=== PATIENT | female | born 1990 | race Caucasian/White ===

== ENCOUNTER → 2019-09-15 15:53 | Outpatient (CLI) | payer BC, SELFPAY ==
--- NOTE | ~2019-09-15 | US_ITS ---
EXAMINATION: US OB >= 14 weeks Fetus DATE: 09/15/2019 16:40 INDICATION: Second trimester anatomic survey TECHNIQUE: Real-time ultrasound of the pelvis was performed. COMPARISON: None. FINDINGS: There is a single living fetus in variable presentation. The placenta is anterior and 4.2 cm from the internal cervical os. heart rate is 138 beats per minute (bpm). cardiac activity and fe garcia movement are noted. The amniotic fluid index is subjectively normal. The stomach is not well demonstrated. The following anatomy was identified as normal: 4 chamber heart 3 vessel cord cord insertion kidneys urinary bladder spine diaphragm ventricles cisterna magna cerebellum The following biometric data were obtained: Biparietal diameter (BPD): 4.0 cm; head circumference (HC): 14.8 cm; abdominal circumference (AC): 13 .1 cm; femur length (FL): 2.4 cm. These measurements are concordant. Estimated weight is 219 g +/- 32 g, which correlates with the 44th percentile when 02/16/2020 is used as estimated date of delivery. As single measurements, these parameters are each equal to the following estimated gestational ages w ith ranges of +/- 2 standard deviations: BPD: 18 weeks 1 days ( 16 weeks 3 days - 19 weeks 6 days). HC: 18 weeks 0 days ( 16 weeks 5 days - 19 weeks 1 days). AC: 18 weeks 5 days ( 16 weeks 4 days - 20 weeks 5 days). FL: 17 weeks 2 days ( 15 weeks 6 days - 18 weeks 5 days). estimated gestational age based solely on measurements from this exam is 18 weeks 0 days +/- 1 weeks 2 days. IMPRESSION: 1. Single living fetus in variable presentation. 2. Estimated weight is 219 g +/- 32 g, which correlates with the 44th percentile when 02/16/2020 is used as estimated date of delivery. Reviewed, dictated and finalized at location A. IMPRESSION: 1. Single living fetus in variable presentation. 2. Estimated weight is 219 g +/- 32 g, which correlates with the 44th per centile when 02/16/2020 is used as estimated date of delivery.
== END ==
PROVIDERS: Visit Provider Obstetrics & Gynecology
DX: Z34.92 Encounter for supervision of normal pregnancy, unspecified, second trimester (principal); Z3A.18 18 weeks gestation of pregnancy
CPT/HCPCS: 76805

== ENCOUNTER 2019-09-17 09:20 | Emergency (ER) | payer BC, SELFPAY ==
--- NOTE | 2019-09-17 09:31 | ED.FALL ---
HPI - Fall General Chief Complaint: Fall Stated Complaint: 18 weeks preg/fall Time Seen by Provider: 09/17/19 09:29 Source: patient Mode of arrival: ambulatory Limitations: no limitations History of Present Illness HPI Narrative: A 28 y/o female presents to the ED with c/o fall. Pt states that she fell down her stairs at home today. She is currently 18 weeks and wanted to be evaluated to make sure that the baby is okay. Pt reports right hand abrasion, but denies right hand pain, vaginal bleeding, LOC, vaginal discharge, ABD pain, and back pain. Dr. Johnson is her [facility]. She is 2. complaint: fall Onset (ago): hour(s) (today) Fall from: down stairs (#) Place fall occurred: home Loss of consciousness: none Location of injury - extremities: Right: hand Associated symptoms (after fall): other (right hand abrasion) Related Data Allergies Allergy/AdvReac Type Severity Reaction Status Date / Time doxycycline AdvReac Unknown vomit Verified 06/12/15 21:21 tanfed Allergy Unknown paranoia Uncoded 06/12/15 21:21 Review of Systems Review of Systems: All systems reviewed & are unremarkable except as noted in HPI and below Gastrointestinal: Gastrointestinal: Denies abdominal pain Genitourinary: Genitourinary: Denies abnormal vaginal bleeding and Denies vaginal discharge Musculoskeletal: Musculoskeletal: Denies back pain and Denies arthralgias (right hand) Integumentary/Breasts: Skin/Breast: Reports wounds (right hand abrasion) Neurologic: Denies other (LOC) PMFSH Past Medical History Medical History (Updated 09/17/19 @ 11:16 by Belem Conner MD) 2 Surgical History Surgical History (Updated 09/17/19 @ 09:32 by Tanya Rodriguez) History of appendectomy Social History Social History (Updated 09/17/19 @ 09:32 by Tanya Rodriguez) Smoking status: Never smoker Exam Const: General: cooperative, no acute distress and alert Nutritional Appearance: well nourished Orientation/consciousness: patient oriented x3 Limitations: no limitations HENMT: Mouth: Yes lip normal and Yes moist mucous membranes Resp: Effort & Inspection: normal respiratory effort Auscultation: clear to auscultation bilaterally Cardio: Rate: regular rate Rhythm: regular rhythm GI: GI Palp: Yes Soft to palpation and No Tenderness to palpation present (GI) Auscultation: normal bowel sounds : OB/external & speculum: other ( heart rate dopplered at 150s) Skin: General skin exam: normal color Neuro: General: patient oriented x3 Cognition (Neuro): normal cognition Speech: normal speech Extrem: General: normal to inspection, full ROM and no clubbing, cyanosis or edema Psych: Mental Status: mental status grossly normal Affect: normal affect Attitude: cooperative Course Course Emergency Course: Patient with Rh+ blood type. No abdominal pain or vaginal bleeding. Exam benign. Will discharge home. Advised [facility] follow-up. Consultations Consultation #1: Discussed case with [facility], Dr. May. They adivse to type and screen the patient, and if they are Rh-, give the patient RhoGAM. Date: 09/17/19 Time: 09:38 Vital Signs Vital signs: Vital Signs Temperature 98.0 F 09/17/19 09:37 Pulse Rate 96 09/17/19 09:37 Respiratory Rate 12 09/17/19 09:37 Blood Pressure 114/70 09/17/19 09:37 Pulse Oximetry 98 09/17/19 09:37 Temperature 98.0 F 09/17/19 09:37 Pulse Rate 96 09/17/19 09:37 Respiratory Rate 12 09/17/19 09:37 Blood Pressure 114/70 09/17/19 09:37 Pulse Oximetry 98 09/17/19 09:37 MDM - Fall Lab Data Labs: Lab Results 09/17/19 Range/Units 09:48 Blood Type O Positive Doses of RhIg Required 0 Critical Care Time Critical Care Time Critical Care Time: No Discharge Plan Discharge Clinical Impression: Second trimester Accident due to mechanical fall without injury Qualifiers: Encounter type: initial encounter Qualified Code(s): W19.X
[2019-09-17 09:37] VITALS: BP 114/70; PULSE 96; RESP 12; TEMP 36.7; O2SAT 98
== END 2019-09-17 11:23 | disposition home or self-care (01) ==
PROVIDERS: Emergency Provider Emergency Medicine; PCP Obstetrics & Gynecology
DX: O9A.212 Injury, poisoning and certain other consequences of external causes complicating pregnancy, second trimester (principal); S60.511A Abrasion of right hand, initial encounter; Z3A.18 18 weeks gestation of pregnancy; W10.9XXA Fall (on) (from) unspecified stairs and steps, initial encounter
CPT/HCPCS: 36415; 86900; 86901; 99283

== ENCOUNTER → 2019-09-29 08:46 | Outpatient (CLI) | payer BC, SELFPAY ==
--- NOTE | ~2019-09-29 | US_ITS ---
EXAMINATION: US OB limited DATE: 09/29/2019 09:06 INDICATION: Nonvisualized anatomy on prior anatomic survey. TECHNIQUE: Real-time ultrasound of the pelvis was performed. The interpreting radiologist was not pre sent for the study. COMPARISON: 09/15/2019 FINDINGS: There is a single living fetus in breech presentation. The placenta is anterior with caudal margin 4 .3 cm from the internal cervical os. heart rate is 144 beats per minute (bpm). The amniotic flu id volume is subjectively normal. Normal stomach is visualized. IMPRESSION: 1. Single living fetus in breech presentation with heart rate of 144 bpm. 2. Normal stomach is visualized. Reviewed, dictated and finalized at location B. IMPRESSION: 1. Single living fetus in breech presentation with heart rate of 144 bpm . 2. Normal stomach is visualized.
== END ==
PROVIDERS: PCP Internal Medicine; Visit Provider Obstetrics & Gynecology
DX: Z36.2 Encounter for other antenatal screening follow-up (principal)
CPT/HCPCS: 76815

== ENCOUNTER 2020-02-02 08:22 | Outpatient (RCR) | payer BC, SELFPAY ==
--- NOTE | ~2020-02-02 | US_ITS ---
EXAMINATION: US OB follow up DATE: 02/02/2020 12:46 INDICATION: growth assessment, third trimester TECHNIQUE: Real-time ultrasound of the pelvis was performed. The interpreting radiologist was not pre sent for the study. COMPARISON: None. FINDINGS: There is a single living fetus in vertex presentation. The placenta is anterior. card iac activity and movement are noted. heart rate is 130 beats per minute (bpm). The amniot ic fluid index is normal. The following biometric data were obtained: Biparietal diameter (BPD): 9.1 cm; head circumference (HC): 32.6 cm; abdominal circumference (AC): 30 .4 cm; femur length (FL): 7.0 cm. These measurements are concordant. Estimated weight is 2658 g +/- 398 g, which correlates with the 8th percentile when 02/16/2020 i s used as estimated date of delivery. As single measurements, these parameters are each equal to the following estimated gestational ages w ith ranges of +/- 2 standard deviations: BPD: 37 weeks 0 days +/- 3 weeks 1 days. HC: 37 weeks 0 days +/- 2 weeks 5 days. AC: 34 weeks 3 days +/- 3 weeks 0 days. FL: 36 weeks 0 days +/- 3 weeks 0 days. estimated gestational age based solely on measurements from this exam is 36 weeks 1 days +/- 2 weeks 4 days. IMPRESSION: 1. Single living fetus in vertex presentation. 2. Estimated weight is 2658 g +/- 398 g, which correlates with the 8th percentile when 0 is used as estimated date of delivery. Reviewed, dictated and finalized at location B. IMPRESSION: 1. Single living fetus in vertex presentation. 2. Estimated weight is 2658 g +/- 398 g, which correlates with the 8th pe rcentile when 02/16/2020 is used as estimated date of delivery.
--- NOTE | ~2020-02-02 | US_ITS ---
EXAMINATION: US OB limited w BPP DATE: 02/02/2020 09:12 INDICATION: Small for gestational age, third trimester TECHNIQUE: Real-time pelvic ultrasound was performed. The interpreting radiologist was not present fo r the study. COMPARISON: None. FINDINGS: There is a single living fetus in vertex presentation. The placenta is anterior. heart rate is 152 beats per minute (bpm). The amniotic fluid index is 10.9 cm which is normal Biophysical profile performed by the technologist: breathing (30 sec sustained breathing in 30 minutes): 2 out of 2 movement (3 gross body movements in 30 minutes): 2 out of 2 tone (one episode of aigpual-lndmiuuif-tujtqvi limb movement): 2 out of 2 Amniotic fluid pocket (2 cm): 2 out of 2 Total score: 8 out of 8 IMPRESSION: 1. Single living fetus in vertex presentation. 2. Biophysical profile 8 out of 8. 3. Normal amniotic fluid index. Reviewed, dictated and finalized at location B.
--- NOTE | 2020-02-02 13:10 | PC.NURSE ---
Dr. Johnson informed of growth U/S report. OK to discharge pt to home. Faxed report to MD office.
== END 2020-02-15 07:42 | disposition home or self-care (01) ==
LOC: ANHOBOP 08:22
PROVIDERS: PCP Internal Medicine; Visit Provider Obstetrics & Gynecology
DX: O36.5930 Maternal care for other known or suspected poor fetal growth, third trimester, not applicable or unspecified (principal); Z3A.38 38 weeks gestation of pregnancy
CPT/HCPCS: 59025; 76815; 76816; 76819

== ENCOUNTER 2020-02-14 04:56 | Inpatient (IN) | payer BC, SELFPAY ==
[2020-02-14] VITALS (153 sets, daily range): BP systolic 81–139; BP diastolic 35–94; PULSE 56–128; RESP 16; TEMP 36.6–37.1; O2SAT 95–100; BMI 36.7
--- NOTE | 2020-02-14 05:23 | LDADM ---
This patient, Vera Chang, was admitted to Labor/Delivery/Recovery 106 on 02/14/20 at 04:56. Plans for labor, pain management and were discussed with patient. Patient/family oriented to hospital policies and general routines including ID bracelet, bed and alarms, visiting hours, pain management, procedures, bathroom and other care routines, personal items, smoking policy, room service/diet and guest tray routines, security routines, and visiting hours. Patient/Family are encouraged to report perceived risks to care and to ask questions if they do not understand what they are told or what they should do. See OBIX for further documentation.
[2020-02-14 05:49] LABS: Basophils Percent Auto 0.4 % (0.2-1.2); Eosinophils Absolute Auto 0.1 K/mm3 (0-0.3); Eosinophils Percent Auto 0.7 % (0-4.4); Hematocrit 39.8 % (37.0-47.0); Hemoglobin 13.7 g/dL (12.0-15.0); Immature Granulocyte Absolute 0.06 K/mm3 (0.00-0.031); Immature Granulocyte Percent A 0.6 % (0-0.5); Lymphocytes Absolute Auto 2.55 K/mm3 (0.9-3.2); Mean Corpuscular HGB Conc 34.4 g/dl (32-36); Mean Corpuscular Hemoglobin 29.8 pg (26-34); Mean Corpuscular Volume 86.5 fl (80-100); Mean Platelet Volume 10.7 fl (7.4-10.4); Monocytes Absolute Auto 0.7 K/mm3 (0.1-0.6); Monocytes Percent Auto 7.1 % (2.6-8.5); Neutrophils Absolute Auto 6.4 K/mm3 (1.3-6.7); Neutrophils Percent Auto 65.2 % (45.5-73.1); Platelet Count Result 220 k/mm3 (150-375); Red Cell Distribution Width 13.2 % (11.5-14.5); White Blood Count 9.8 K/mm3 (4.5-10.0)
[2020-02-14] MEDS: LACTATED RINGERS 1,000 ML 125 ML IV CONT ×3 (05:52→13:17)
[2020-02-14] MEDS: OXYTOCIN 30 UNITS/NS 500 ML 30 UNITS/500 ML BAG IV CONT (06:38)
[2020-02-14 07:39] LABS: Rapid Plasma Reagin Non-Reactive (NonReactive)
--- NOTE | 2020-02-14 07:45 | P.PNAN_ITS ---
Anes - Eval Pre Procedure Procedure: labor epidural Date/Time: 02/14/20 07:45 Preop Diagnosis: pain during labor Pre Op Diagnosis: Induction Patient Data Age: 29 Gender: F Height: 5 ft 3 in Weight: 94 kg Last Vital Signs Temp 36.6 C 02/14/20 07:30 Pulse 67 02/14/20 07:30 BP 107/73 02/14/20 07:30 Allergies Allergy/AdvReac Type Severity Reaction Status Date / Time doxycycline AdvReac Unknown vomit Verified 01/16/20 13:31 tanfed Allergy Unknown paranoia Uncoded 06/12/15 21:21 Home Medications Medication Instructions Recorded Confirmed Type PNV cmb#95-ferrous fumarate-FA 1 tablet PO DAILY 01/16/20 01/16/20 History [] ergocalciferol (vitamin D2) 1,250 mcg PO WEEKLY 01/16/20 01/16/20 History [Vitamin D2] Laboratory Tests 02/14/20 02/14/20 02/14/20 05:39 05:39 05:39 WBC 9.8 K/mm3 K/mm3 (4.5-10.0) RBC 4.60 M/mm3 M/mm3 (4.2-5.4) Hgb 13.7 g/dL g/dL (12.0-15.0) Hct 39.8 % % (37.0-47.0) MCV 86.5 fl fl (80-100) MCH 29.8 pg pg (26-34) MCHC 34.4 g/dl g/dl (32-36) RDW 13.2 % % (11.5-14.5) Plt Count 220 k/mm3 k/mm3 (150-375) MPV 10.7 fl H fl (7.4-10.4) Immature Gran % (Auto) 0.6 % H % (0-0.5) Neut % (Auto) 65.2 % % (45.5-73.1) Lymph % (Auto) 26.0 % % (18.3-44.2) [place] % (Auto) 7.1 % % (2.6-8.5) Eos % (Auto) 0.7 % % (0-4.4) Baso % (Auto) 0.4 % % (0.2-1.2) Lymph # (Auto) 2.55 K/mm3 K/mm3 (0.9-3.2) [place] # (Auto) 0.7 K/mm3 H K/mm3 (0.1-0.6) Eos # (Auto) 0.1 K/mm3 K/mm3 (0-0.3) Baso # (Auto) 0.0 K/mm3 K/mm3 (0.0-0.1) Abs Immat Gran (auto) 0.06 K/mm3 H K/mm3 (0.00-0.031) Absolute Neuts (auto) 6.4 K/mm3 K/mm3 (1.3-6.7) Absolute Nucleated RBC 0.0 K/mm3 K/mm3 (0.0-0.012) Nucleated RBC % 0.0 % % (0.0-0.2) RPR Non-reactive (NonReactive) Blood Type O Positive Antibody Screen Negative Patient hx anesthesia problems: none Family hx anesthesia problems: none PMFSH Past Medical History Medical History (Updated 09/18/19 @ 00:00 by Brie Casas) 2 Surgical History Surgical History (Updated 09/17/19 @ 09:32 by Tanya Rodriguez) History of appendectomy Family History Family History (Updated 01/16/20 @ 13:34 by Gali Sky RN) Father FH: CABG (coronary artery bypass surgery) Mother Pre-diabetes Social History Social History (Updated 09/17/19 @ 09:32 by Tanya Rodriguez) Smoking status: Never smoker Second hand tobacco smoke exposure: No Substance use: never Spiritual care concerns: No Exam Day of Procedure 02/14/20 07:45
--- NOTE | 2020-02-14 09:36 | WPDOBADMIT ---
Obstetrics - Admit Note Admission Note: Strip reviewed. AROm clear fluid IUPC and FSE placed for monitoring. AMnioinfusion began. cervix /. record reviewed. No pertinent additions to the history and/or any subsequent changes in the physical findings that are not consistent with the expected course of the were found. Additions to the history and/or subsequent changes in the physical findings follow. None.
--- NOTE | 2020-02-14 16:41 | P.PCNOB_ITS ---
OB - Delivery Note Procedure Delivery date: 02/14/20 Procedure: VAVD events: Labor Induction Intrapartal events: None and Deceleration Induction method: AROM and per pitocin protocol Delivery monitor: external FHT, external uterine, internal FHT and internal uterine Route of delivery: vacuum extraction Indication for instrumentation: nonreassuring FHR tracing Laceration description: Periurethral - 2nd Degree Delivery repair: vicryl Specimen: Yes Estimated blood loss (mL): 180 Anesthesia type: Epidural Disposition: floor [place] Baby Date of : 02/14/20 Time of : 16:24 Weeks of gestation at delivery: 39 gender: Male Weight (pounds): 6 Weight (ounces): 14 presentation: vertex position: Left Occiput Anterior Placenta delivery description: Spontaneous cord vessel description: 3 Vessels, Nuchal Cord and Clamped/Cut score one minute: 8 score five minutes: 9
--- NOTE | 2020-02-14 16:44 | PM.OBDSVD ---
DS: Admitting Diagnosis Admitting Diagnosis Admitting Diagnosis: Induction DS: Discharge Diagnosis Discharge Diagnosis (1) Vacuum extraction, delivered, current hospitalization: Code(s): O66.5 - Attempted application of vacuum extractor and forceps Status: Acute OB - DS: Summary OB Procedures : NST and Ultrasound OB Procedures Intrapartum: Vacuum extraction OB Procedures: : None Peripartum Data Infant Delivery Method: Natural Vaginal Laceration description: Periurethral - 2nd Degree complications: none Time Spent with Patient Time attestation: Total time spent providing and/or coordinating discharge services: DS: Data Data Completed and Pending Labs on day of discharge: Labs from last 24 hours 02/14/20 02/14/20 02/14/20 05:39 05:39 05:39 WBC 9.8 RBC 4.60 Hgb 13.7 Hct 39.8 MCV 86.5 MCH 29.8 MCHC 34.4 RDW 13.2 Plt Count 220 MPV 10.7 H Immature Gran % (Auto) 0.6 H Neut % (Auto) 65.2 Lymph % (Auto) 26.0 [place] % (Auto) 7.1 Eos % (Auto) 0.7 Baso % (Auto) 0.4 Lymph # (Auto) 2.55 [place] # (Auto) 0.7 H Eos # (Auto) 0.1 Baso # (Auto) 0.0 Abs Immat Gran (auto) 0.06 H Absolute Neuts (auto) 6.4 Absolute Nucleated RBC 0.0 Nucleated RBC % 0.0 RPR Non-reactive Blood Type O Positive Antibody Screen Negative Discharge Plan Discharge Attending physician on discharge: Juan David Johnson Discharging Clinician: Juan David Johnson Patient Disposition: Home, Self-Care Activity: may shower and pelvic rest Diet: regular Patient Instructions: Antibiotic Form Stand Alone Forms: General Discharge Information Follow-up/Referrals: Juan David Johnson MD [Physician] - Discharge Medications: No Action ergocalciferol (vitamin D2) [Vitamin D2] 1,250 mcg (50,000 unit) Capsule 1,250 mcg PO WEEKLY RF: 0 PNV cmb#95-ferrous fumarate-FA [] 28 mg iron- 800 mcg Tablet 1 tablet PO DAILY RF: 0 Date of admission: 02/14/20 04:56 Primary Care Provider: StephanieYahaira Admitting Provider: Juan David Johnson Attending physician on admission: Juan David Johnson.
[2020-02-14] MEDS: OXYTOCIN 30 UNITS/NS 500 ML 30 UNITS/500 ML BAG 125 UNITS IV CONT (17:01)
[2020-02-14] MEDS: WITCH HAZEL 40 PADS 1 PAD TOPICAL (18:55)
[2020-02-14] MEDS: BENZOCAINE 20% AER SPR (*SP) 56 GM CAN 1 SPRAY TOPICAL (18:55)
--- NOTE | 2020-02-14 19:20 | OBPPTRN ---
Patient transferred to post room #285 via wheelchair. Support person present. Oriented to unit, room, information board, rooming in, admission packet and security measures. Patient verbalizes understanding. with patient.
[2020-02-15 05:03] LABS: Hematocrit 35.7 % (37.0-47.0); Hemoglobin 12.5 g/dL (12.0-15.0)
--- NOTE | 2020-02-15 07:53 | P.PNOB_ITS ---
OB - PN: Subj Subjective Date/time seen: 02/15/20 07:53 Doing wel no complaints desires home today. OB - PN: Obj Data Labs CBC & Chem 7: 02/15/20 04:17 Labs: Laboratory Results - last 24 hr 02/15/20 04:17 Hgb 12.5 Hct 35.7 L OB - PN A/P Assessment and Plan (1) Vacuum extraction, delivered, current hospitalization: Code(s): O66.5 - Attempted application of vacuum extractor and forceps Status: Acute Assessment and Plan: d/c home if infannt cleared by rn telephone triage Time Spent With Patient Time: Total time spent is greater than 50% in coordination of care (as documented) at patient's floor/unit and/or counseling patient: Exam GI: Other: ff below umbilicus
[2020-02-15 08:00] VITALS: BP 112/71; PULSE 72; RESP 18; TEMP 36.7; O2SAT 98
--- NOTE | 2020-02-15 09:35 | PC.NURSE ---
Consulted with patient, mother reports infant has been sleepy and difficult to latch. was up feeding freq during the night. Mother has bruising to right areola from incorrect latch. Reviewed infant feeding cues, frequencies, duration of feedings, feeding elimination flow sheet, and signs of adequate intake. Demonstrated stimulation techniques to wake infant for feeding. Assisted with to breast. Reviewed positioning/alignment in cross cradle, holding breast in U hold and guided asymmetrical latch on. Several attempts made infant was able to latch correctly and could not draw nipple in. Discussed the nipple shield. Mother states she used a nipple shield with first child. Nipple shield provided to mother due to ineffective latch. Instructions given on application and cleaning of shield. Discussed nipple shield precautions and possible complications. Patient able to return demonstration on proper application of shield. Discussed the need to initiate pumping if infant continues to nurse with the shield. Patient verbalizes understanding. was able to latch correctly with shield. Infant nursed sleepily with short bursts of suckling followed with long pausing and falling to sleep. Mother states she will supplement at this time due to time from last feeding. Mother has her pump with her, suggested mother initiate pumping with shield use. Offered to assist with pumping, mother denies need for assist.
[2020-02-15] MEDS: MULTIVIT/MIN/PREN/FOL AC/IRON TABLET 1 TAB PO (09:42)
[2020-02-15] MEDS: IBUPROFEN 600 MG TABLET PO (09:42)
--- NOTE | 2020-02-15 10:30 | WPDANLDPN2 ---
Anes-Prog Note L&D Date/Time: 02/15/20 10:30 Comfortable throughout: labor and delivery Epidural/Spinal procedure site: clean & non-tender Neuro status: Neuro function grossly intact. Cardiovascular status: normal Respiratory status: normal Airway patency: baseline Mental status: baseline Post-Op hydration status: normal Vital Signs: Last Vital Signs Temp 36.7 C 02/15/20 08:00 Pulse 72 02/15/20 08:00 Resp 18 02/15/20 08:00 BP 112/71 02/15/20 08:00 Pulse Ox 98 02/15/20 08:00 I/O: Intake & Output 02/14/20 02/15/20 02/15/20 23:59 07:59 15:59 Intake Total 1500 240 Output Total 138 Balance 1362 240 Post-procedural complaints: none Patient feedback: Patient satisfied with anesthetic care.
[2020-02-16 10:27] VITALS: BP 115/77; PULSE 73; RESP 16; TEMP 36.8; O2SAT 97
== END 2020-02-15 19:17 | disposition home or self-care (01) | DRG 807 ==
LOC: ANHLDR 05:01 → ANHOB2 19:52
PROVIDERS: Admitting Provider Obstetrics & Gynecology; PCP Internal Medicine; Visit Provider Obstetrics & Gynecology
DX: O69.81X0 Labor and delivery complicated by cord around neck, without compression, not applicable or unspecified (principal); Z37.0 Single live birth; Z3A.39 39 weeks gestation of pregnancy; O70.1 Second degree perineal laceration during delivery
CPT/HCPCS: 36415; 85014; 85018; 85025; 86592; 86850; 86900; 86901; 88307; A9270; J2590; J2795; J7120

== ENCOUNTER 2024-07-31 09:54 | Emergency (ER) | payer OTHER, SELFPAY ==
[2024-07-31 10:07] VITALS: BP 135/71; PULSE 147; RESP 16; TEMP 36.2; O2SAT 99
--- NOTE | 2024-07-31 10:37 | ED_ITS ---
HPI - URI/Sore Throat General Chief Complaint: Upper Respiratory Infection Stated Complaint: Fever/Body Aches/Cough Time Seen by Provider: 07/31/24 10:37 Source: patient Mode of arrival: ambulatory Limitations: no limitations History of Present Illness HPI Narrative: 33-year-old female presents with complaint of fever, body aches, cough, congestion for 3 days. Taking Sudafed to treat congestion. No chest pain or shortness of breath. Denies nausea vomiting diarrhea. Patient reports influenza exposure from her parents. All systems reviewed and negative except as noted above. Related Data Allergies Allergy/AdvReac Type Severity Reaction Status Date / Time doxycycline AdvReac Unknown vomit Verified 01/16/20 13:31 tanfed Allergy Unknown paranoia Uncoded 06/12/15 21:21 Review of Systems Review of Systems: CONSTITUTIONAL: reports fever, chills, or sweats. EYES: Denies visual changes, redness, or discharge. ENT: Reports rhinorrhea, congestion. Denies sore throat, or otalgia. CARDIOVASCULAR: Denies chest pain, palpitations, or edema. RESPIRATORY: reports cough. Denies dyspnea. GASTROINTESTINAL: Denies abdominal pain, nausea, vomiting, or diarrhea. GENITOURINARY: Denies dysuria or hematuria. SKIN: Denies rash or itching. MUSCULOSKELETAL: Denies back pain, joint pain, or myalgia. NEUROLOGIC: Denies headache, numbness, or weakness. PSYCHIATRIC: Denies anxiety or depression. All other systems reviewed are negative, except as documented in HPI. COUNT INCLUDES THE [facility] Past Medical History Medical History (Updated 07/31/24 @ 10:42 by Beckie Nuñez NP) Vacuum extraction, delivered, current hospitalization 2 Surgical History Surgical History (Updated 09/17/19 @ 09:32 by Tanya Rodriguez) History of appendectomy Family History Family History (Updated 01/16/20 @ 13:34 by Gali Sky RN) Father FH: CABG (coronary artery bypass surgery) Mother Pre-diabetes Social History Social History (Updated 09/17/19 @ 09:32 by Tanya Rodriguez) Smoking status: Never smoker Second hand tobacco smoke exposure: No Substance use: never Spiritual care concerns: No Comments At time of signature, agree with nursing past medical, surgical, social and family history. There is no relevant family history pertinent to the presenting complaint. Exam Narrative: GENERAL: This is a well-nourished, well-developed patient, ill-appearing but no acute distress HEAD: normocephalic, atraumatic. EYES: PERRL. Sclera clear/white. Vision is grossly intact. EARS: External ears normal, auditory canals clear and without drainage, TMs normal without perforation. Hearing grossly intact. NOSE: External nose normal with no obvious nasal discharge, nares without redness, no rhinorrhea. THROAT: Mucous membranes moist, posterior pharynx clear. NECK: Neck supple, non-tender without lymphadenopathy, masses or thyromegaly. CARDIOVASCULAR: tachycardia without murmurs, gallops, or rubs. RESPIRATORY: Clear to auscultation. Breath sounds equal bilaterally. No wheezes, rales, or rhonchi. SKIN: warm, Dry, intact with no suspicious lesions or rash, good texture and turgor. NEURO: awake, alert, and oriented to person, place and time. There were no obvious focal neurologic abnormalities. EXTREMITIES: No joint tenderness, effusion, or edema noted. Course Course Level of Care: Express Care Visit Vital Signs Vital signs: Vital Signs Temperature 36.2 C L 07/31/24 10:07 Pulse Rate 147 H 07/31/24 10:07 Respiratory Rate 16 07/31/24 10:07 Blood Pressure 135/71 07/31/24 10:07 Pulse Oximetry 99 07/31/24 10:07 Oxygen Delivery Room Air 07/31/24 10:07 Temperature 36.2 C L 07/31/24 10:07 Pulse Rate 147 H 07/31/24 10:07 Respiratory Rate 16 07/31/24 10:07 Blood Pressure 135/71 07/31/24 10:07 Pulse Oximetry 99 07/31/24 10:07 Oxygen Delivery Room Air 07/31/24 10:07 reviewed, 114 auscultated MDM - URI/Sore Throat MDM Narrative Medical decision making narrative: at discharge patient's heart rate on pulse oximeter was 250. An EKG was completed and EKG sinus tachycardia, heart rate 118 without ischemia. Patient positive for influenza. Recommend [id number] medications to treat symptoms. Patient is well-appearing, nontoxic. Patient is aware of diagnosis, understands and agrees to treatment plan. Anticipatory guidance given. Patient agrees to follow-up as directed and is aware of reasons to seek care at the emergency department. Portions of this record may have been created with voice recognition software Differential Diagnosis Differential diagnosis: Likely upper respiratory infection, sinusitis, viral infection, bronchitis and influenza Lab Data Labs: Lab Results 07/31/24 Range/Units 10:37 POC Influenza A Ag Positive (Negative) POC Influenza B Ag Negative (Negative) POC SARS CoV-2 Ag Negative (Negative) Discharge Plan Discharge Clinical Impression: Influenza A Patient Disposition: Home, Self-Care Condition: Stable Instructions: Influenza (ED) Additional Instructions: you were positive for influenza today. Influenza is a virus and symptoms may last 10-14 days. Continue [id number] pseudoephedrine to treat congestion. Take Tylenol or ibuprofen every 6-8 hours as needed for pain and fever. Drink at least 64 oz of water a day. Follow-up with your primary care physician if symptoms are not improving. Patient Language: Swedish Prescriptions: New benzonatate 200 mg capsule 200 mg PO TID PRN (Reason: cough) Qty: 20 0RF Follow-up/Referrals: PHYSICIAN,PROTECTIVE SIGNAL INSTALLER HELPER [Primary Care Provider] - Time of Disposition: 10:41
[2024-07-31 10:39] LABS: EDCOVIDSCREEN Negative (Negative); EDINFLUASCREEN Positive (Negative); EDINFLUBSCREEN Negative (Negative)
--- NOTE | 2024-07-31 10:45 | ECG_ITS ---
Test Date: 2024-07-31 10:49:07 Measurements Intervals [place] Rate: 118 P: 55 UT: 128 QRS: -7 QRSD: 80 T: 31 QT: 320 QTc: 449 Interpretive Statements SINUS TACHYCARDIA BORDERLINE T WAVE ABNORMALITY- INFERIOR LEADS BASELINE ARTIFACT- I, II, III, AVR, AVF ABNORMAL ECG No previous ECG available for comparison Electronically Signed On 07-31-2024 13:41:58 [employer]ING WHEEL [employer] by Geovanny Rapp D.O.
== END 2024-07-31 10:54 | disposition home or self-care (01) ==
PROVIDERS: Emergency Provider Nurse Practitioner Family
DX: J10.1 Influenza due to other identified influenza virus with other respiratory manifestations (principal); Z20.822 Contact with and (suspected) exposure to COVID-19
CPT/HCPCS: 87426; 87804; 93005; 99213; G0463